=== PATIENT | female | born 1945 | race Caucasian/White ===

== ENCOUNTER → 2016-09-10 | Outpatient (CLI) | payer BC ==
--- NOTE | 2016-09-10 15:42 | MAMMOGRAPHY REPORT ---
BILATERAL DIGITAL SCREENING MAMMOGRAM WITH CAD: 09/10/2016 CLINICAL HISTORY: Routine screening. Patient has no complaints. TECHNIQUE: Bilateral CC, MLO and repeat right cc views were obtained. Current study was also evaluat ed with a Computer Aided Detection (CAD) system. COMPARISON: Comparison is made to exams dated: 09/07/2015 mammogram, 08/12/2014 mammogram, 08/18/2013 ult rasound, 08/18/2013 mammogram, 08/11/2013 mammogram, and 08/05/2012 mammogram - [facility] er. BREAST COMPOSITION: There are scattered areas of fibroglandular density in both breasts. FINDINGS: There is skin irregularity in the right upper outer quadrant, and expected architectural di stortion in the far posterior lateral right breast, best seen on the CC view, in the area of prior german rgery. There are a few benign-appearing calcifications in the left breast, stable compared to prior exams. No new suspicious mass, architectural distortion or cluster of microcalcifications is seen. IMPRESSION: ACR BI-RADS CATEGORY 1: NEGATIVE There is no mammographic evidence of malignancy. A 1 year screening mammogram is recommended. The pa tient will receive written notification of the results. Approximately 10% of breast cancers are not detected with mammography. A negative mammographic report should not delay biopsy if a clinically suggestive mass is present. Shira Cooper M.D. ay/:09/10/2016 14:04:47 Hydrometer Finisher: Ellen MCPHERSON)(Carmencita), [facility] letter sent: Normal 1/2 BI-RADS Code: ACR BI-RADS Category 1: Negative
== END | disposition home or self-care (01) ==
LOC: C.MAMM 13:34
PROVIDERS: ATTEND Internal Medicine
DX: Z12.31 Encounter for screening mammogram for malignant neoplasm of breast (principal)

== ENCOUNTER → 2017-09-11 | Outpatient (CLI) | payer BC ==
--- NOTE | 2017-09-12 14:54 | MAMMOGRAPHY REPORT ---
BILATERAL DIGITAL SCREENING MAMMOGRAM TOMOSYNTHESIS WITH CAD: 09/11/2017 CLINICAL HISTORY: Routine screening. TECHNIQUE: The study was acquired using full field digital technology and interpreted from soft copy. Breast tomosynthesis in addition to standard 2D mammography was performed. Current study was also ev aluated with a Computer Aided Detection (CAD) system. COMPARISON: Comparison is made to exams dated: 09/10/2016 mammogram, 09/07/2015 mammogram, 08/12/2014 ma mmogram, 08/11/2013 mammogram, 08/05/2012 mammogram, and 07/16/2011 mammogram - [facility] er. BREAST COMPOSITION: There are scattered areas of fibroglandular density in both breasts. FINDINGS: There are possible clusters of microcalcifications in the upper outer quadrant of the left breast, for which additional spot magnification views are recommended. No other suspicious mass, architectural distortion or cluster of microcalcifications is seen. IMPRESSION: ACR BI-RADS CATEGORY 0: INCOMPLETE EVALUATION: NEED ADDITIONAL IMAGING EVALUATION The possible clusters of microcalcifications in the upper outer breast need additional evaluation. The patient will be called to schedule an appointment. Some breast cancers are not detected with mammography. A negative mammographic report should not ryan y biopsy if a clinically suggestive mass is present. Shira Cooper M.D. ay/:09/11/2017 15:52:23 Jack Spooler Tender: RT Lc(Mukesh)(M), [facility] letter sent: Addl Imaging 0 BI-RADS Code: ACR BI-RADS Category 0: Incomplete Evaluation: Need Additional Imaging Evaluation
== END | disposition home or self-care (01) ==
LOC: C.MAMM 13:01
PROVIDERS: ATTEND Internal Medicine
DX: Z12.31 Encounter for screening mammogram for malignant neoplasm of breast (principal)

== ENCOUNTER → 2017-09-19 | Outpatient (CLI) | payer BC ==
--- NOTE | 2017-09-19 15:11 | MAMMOGRAPHY REPORT ---
UNILATERAL LEFT DIGITAL DIAGNOSTIC MAMMOGRAM: 09/19/2017 CLINICAL HISTORY: Callback from screening mammogram for left breast calcifications. TECHNIQUE: The study was acquired using full field digital technology and interpreted from soft copy. Spot magnification left CC and ML views were obtained. COMPARISON: Comparison is made to exams dated: 09/11/2017 mammogram, 09/10/2016 mammogram, 09/07/2015 ma mmogram, 08/12/2014 mammogram, 08/18/2013 ultrasound, and 08/11/2013 mammogram - [facility] er. BREAST COMPOSITION: There are scattered areas of fibroglandular density in left breast. FINDINGS: Spot magnification views of the left breast demonstrate a small 2 mm cluster of faint punctate calcif ications in the left upper outer quadrant posteriorly. Additionally, there are loosely grouped faint , predominantly punctate, calcifications within the left upper outer quadrant middle depth. The calc ifications are likely not significantly changed compared to the August 2015 exam and therefore probably benign. Recommend short interval follow-up to confirm stability on spot magnification views. IMPRESSION: ACR-BI-RADS CATEGORY 3: PROBABLY BENIGN Left upper outer quadrant calcifications are not significantly changed compared to the August 2015 exam and are therefore probably benign. Recommend follow-up diagnostic mammograms of the left breast in 6 months to confirm stability on spot magnification views. The patient has been verbally notified of the results. Some breast cancers are not detected with mammography. A negative mammographic report should not ryan y biopsy if a clinically suggestive mass is present. Vida Koo M.D. /:09/19/2017 14:12:56 Forestry Workers: Vesna Lacey, [facility] letter sent: Follow Up Recommended 3 BI-RADS Code: ACR-BI-RADS Category 3: Probably Benign
--- NOTE | 2017-09-26 11:40 | CODING QUERY NO DIAGNOSIS ---
TREATMENT RENDERED WITHOUT A DIAGNOSIS Dr. Wan, To promote full compliance with coding requirements relating to patient care, physician participation is requested in all cases of boarding kennel or cattery operator uncertainty. Please assist us with providing a diagnosis/symptom for the test(s) below: A diagnosis/symptom was not documented on your Order. A valid diagnosis/symptom is required to bill all insurances. Please remember that we are unable to code a diagnosis of rule out, probable, possible, questionable, or suspected. Tests that require a diagnosis: * SIL Johnson CALL BACK W/O CAD DIAGNOSIS: DATE OF SERVICE: 09/19/17 Provider Signature: Date: Thank you Rogerio Morales [facility] Information Management Once completed, please kindly fax back to [phone] For questions please call [phone]
== END | disposition home or self-care (01) ==
LOC: C.MAMM 13:38
PROVIDERS: ATTEND Internal Medicine
DX: R92.2 Inconclusive mammogram (principal); R92.1 Mammographic calcification found on diagnostic imaging of breast